=== PATIENT | female | born 1965 | race Caucasian/White ===

== ENCOUNTER 2023-07-12 01:35 | Emergency (ER) | payer OTHER ==
[~2023-07-12] VITALS: Ht 157.5 cm; Wt 95.3 kg
[2023-07-12 01:36] VITALS: BP 127/85; PULSE 78; RESP 16; TEMP 97.4; O2SAT 98
[2023-07-12 07:45] VITALS: BP 133/75; PULSE 81; RESP 18; TEMP 97.5; O2SAT 98
== END 2023-07-12 07:48 | disposition home or self-care (01) ==
LOC: MED 01:35
DX: F10.129 Alcohol abuse with intoxication, unspecified (principal); M25.561 Pain in right knee; M25.511 Pain in right shoulder; M54.2 Cervicalgia; E11.9 Type 2 diabetes mellitus without complications; I10 Essential (primary) hypertension; W19.XXXA Unspecified fall, initial encounter; Y93.89 Activity, other specified; Y92.89 Other specified places as the place of occurrence of the external cause; Y99.8 Other external cause status
CPT/HCPCS: 70450; 72125; 73030; 73562; 99284; Q0092